=== PATIENT | female | born 1965 | race Two or more races ===

== ENCOUNTER 2023-08-29 18:37 | Emergency (ER) | payer OTHER ==
[~2023-08-29] VITALS: Ht 157.5 cm; Wt 66.2 kg
[2023-08-29] MEDS ORDERED: PANTOPRAZOLE SO40 M2 PO (19:04)
[2023-08-29] MEDS ORDERED: WELLBUTRIN XL150 M1 PO (19:04)
[2023-08-29] MEDS ORDERED: EFFEXOR XR75 MG PO (19:05)
[2023-08-29] MEDS ORDERED: HYOSCYAMINE SULFATE 0.125 MG TAB.SUBL SL ONE (19:45)
[2023-08-29] MEDS ORDERED: ONDANSETRON HCL 2 MG/ML VIAL IV ONE (19:45)
[2023-08-29] MEDS ORDERED: 0.9 % SODIUM CHLORIDE 1,000 ML IV ONE (19:45)
[2023-08-29] MEDS ORDERED: FAMOTIDINE/PF 20 MG/2 ML VIAL IV PUSH ONE (19:45)
[2023-08-29 20:03] LABS: HEMATOCRIT 41.1 % (36.0-45.00); HEMOGLOBIN 14.2 g/dL (12.0-15.00); MEAN CELL VOLUME 90.1 fL (80.00-100.00); MEAN CORPUSCULAR HEMOGLOBIN 31.1 pg (27.00-32.0); MEAN CORPUSCULAR HGB CONC 34.5 g/dl (32.0-36.0); PLATELET COUNT 264 K/uL (150-450); RED BLOOD COUNT 4.56 M/uL (4.00-6.00); RED CELL DISTRIBUTION WIDTH 13.3 % (11.5-14.5)
[2023-08-29 20:34] LABS: ALBUMIN 3.9 gm/dL (3.4-5.0); BILIRUBIN TOTAL 0.46 mg/dL (0.3-1.2); CALCIUM 9.5 mg/dL (8.5-10.1); CREATININE SERUM 0.88 mg/dL (0.55-1.02); GFR 66.23; GLOBULINA 4.1 G/DL (2.4-3.5); POTASSIUM 3.59 mEq/L (3.5-5.1)
[2023-08-29 21:15] LABS: PH,URINE 6.5 (5.0-8.0); URINE APPEARANCE Clear; URINE BILIRRUBIN Negative (NEGATIVE); URINE BLOOD Negative; URINE COLOR Yellow; URINE GLUCOSE Negative (NEGATIVE); URINE LEUKOCYTE Small; URINE NITRATE Negative; URINE PROTEIN Negative (NEGATIVE); URINE UROBILINOGEN 0.2 E.U./dl
[2023-08-29 21:19] LABS: URINE BACTERIA 95.7 uL (0.0-1933); URINE EPITHELIAL CELLS 21.1 uL (0.0-38.8); URINE WBC 12.3 uL (0.0-23.2)
== END 2023-08-29 23:30 | disposition home or self-care (01) ==
LOC: ER 18:37
PROVIDERS: General Practice
DX: R10.9 Unspecified abdominal pain (principal); Z88.0 Allergy status to penicillin; Z88.6 Allergy status to analgesic agent; K29.70 Gastritis, unspecified, without bleeding; Z20.822 Contact with and (suspected) exposure to COVID-19